=== PATIENT | male | born 1950 | race Caucasian/White ===

== ENCOUNTER → 2017-01-28 | Outpatient (CLI) | payer OTHER ==
[2016-05-19 11:07] VITALS: BP 123/60
--- NOTE | 2017-01-28 09:45 | RAD ---
Examination: X-rays of the right knee. Clinical history: Acute medial meniscus tear, right knee pain. Technique: Four views of the right knee were obtained. Comparison: None available. Findings: No acute fracture, dislocation, or destructive bony lesion is noted. Small osteophytes are noted in the medial compartment of the knee, with tiny osteophytes also seen i n the patellofemoral compartment of the knee, consistent with mild osteoarthritic changes. No soft tissue abnormality is noted. Impression: 1. Mild osteoarthritic changes, as described above. Reported By:
== END ==
LOC: RAD 08:55
PROVIDERS: ATTEND Specialist
DX: S83.241D Other tear of medial meniscus, current injury, right knee, subsequent encounter (principal); X58.XXXD Exposure to other specified factors, subsequent encounter
CPT/HCPCS: 73564

== ENCOUNTER → 2017-04-15 | Outpatient (CLI) | payer OTHER ==
[2016-05-19 11:07] VITALS: BP 123/60
--- NOTE | 2017-04-15 15:24 | MRI ---
MRI right knee Indication: Right knee pain. Technique: Multiplanar MRI images of the right knee was performed without gadolinium. Findings: The quadriceps and patella tendons are normal. There is stranding seen within Hoffa's fat in the region of the ligamentum mucosum. There is a tear of the body, posterior horn of the medial m eniscus with meniscal fragment flipped into the intercondylar notch adjacent to the PCL. The lateral meniscus is normal without tear.. The ACL demonstrate increased signal within the posterior lateral band. The anterior medial band appears intact but wavy. The PCL is normal in appearance. The superf icial MCL is intact. The conjoined tendon and FCL are normal in appearance. There is mild degenerati ve changes involving the proximal tibiofibular joint with fibular subchondral cyst-like changes. The popliteus is intact. There is fluid signal seen within both heads of the gastrocnemius. Small popli teal cyst and small joint effusion are present. No cartilaginous defect is seen however there is adv anced degenerative arthrosis of the medial femorotibial compartment. The lateral femorotibial and pa tellofermoralcompartment show mild degenerative. Conclusion: 1. Complex tear of the body and posterior horn of the medial meniscus with lateral flipp ed fragment into the trochlear notch. 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 2. Sprain of the ACL likely involving the posterior lateral fibers. 3. Curvilinear fluid seen within Hoffa's fat suggest ligamentum mucosum injury. Reported By:
== END | disposition home or self-care (01) ==
LOC: RAD 14:24
PROVIDERS: ATTEND Internal Medicine
DX: M25.561 Pain in right knee (principal); S83.231A Complex tear of medial meniscus, current injury, right knee, initial encounter; S83.8X1A Sprain of other specified parts of right knee, initial encounter; X58.XXXA Exposure to other specified factors, initial encounter
CPT/HCPCS: 73721

== ENCOUNTER → 2017-12-06 | Outpatient (CLI) | payer OTHER ==
[2016-05-19 11:07] VITALS: BP 123/60
--- NOTE | 2017-12-06 14:04 | CT ---
HISTORY: Left flank pain and dysuria Study: CT abdomen and pelvis without contrast Comparison: None Technique: Multiple axial images of the abdomen and pelvis were obtained from the lung bases to the pubic symphy sis without the administration of IV contrast. Dose reduction techniques including automated exposur e control (AEC) and adjustment of mA and kV were utilized. Findings: The visualized portions of the lung bases are unremarkable. An approximate 1.0 cm low-attenuation le maritza within the liver demonstrates Hounsfield units consistent with a cyst. The spleen, pancreas, and adrenals are grossly unremarkable in appearance given the limitations of this noncontrast exam. An a pproximate 5 mm nonobstructing calculus is seen within the right kidney. Mild to moderate left-sided hydronephrosis and hydroureter are demonstrated. An approximate 4 mm stone is seen within the distal left ureter at the level of the ureterovesical junction. Left-sided perinephric and periureteral stra nding are demonstrated. Evaluation of the stomach, small bowel, and colon is limited without oral con trast. The urinary bladder is not well distended which limits evaluation. Postoperative changes of th e prostate are demonstrated. Degenerative changes are seen throughout the visualized spine. IMPRESSION: 4 mm stone at the level of the left ureterovesical junction resulting in mild to moderate left-sided hydronephrosis and hydroureter. Nonobstructing right renal calculus. Other findings as noted above. Reported By:
== END | disposition home or self-care (01) | DRG 392 ==
LOC: RAD 12:45
PROVIDERS: ATTEND Internal Medicine
DX: R10.32 Left lower quadrant pain (principal); N13.39 Other hydronephrosis; N13.4 Hydroureter; N20.0 Calculus of kidney
CPT/HCPCS: 74176

== ENCOUNTER 2018-09-21 21:32 | Inpatient (IN) ==
[2018-09-21 21:47] VITALS: BMI 30.2
[2018-09-21] MEDS ORDERED: NS 1000 ML 1,000 ML ONE (21:49)
[2018-09-21] MEDS ORDERED: NS 1000 ML 1,000 ML IV ONE (21:55)
[2018-09-21] MEDS ORDERED: TORADOL 30 MG VIAL IVP ONE (21:56)
[2018-09-21] MEDS ORDERED: TORADOL 30 MG VIAL ONE (21:58)
--- NOTE | 2018-09-21 21:59 | DR.ABDMALE ---
HPI Time seen Time Seen by Provider: 09/21/18 21:55 PCP Primary Care Physician: MECCA Hart Chief Complaint Doctors Comments: Patient presents with right flank pain. He reports a history of nephrolithiasis one year ago. Pain is sharp 10/10 in elena racter. Chief Complaint:: RIGHT FLANK PAIN, HX OF KIDNEY STONES Mode of arrival Mode of Arrival: Ambulatory Timing Onset of Chief Complaint: 09/21/18 PMH PMH Past Medical History: Yes Past Medical History: Dyslipidemia and Hypertension Past Medical History Comment: HX OF PROSTATE CANCER Past Surgical History: Yes Surgical History: Ortho Surgery Past Surgical History Comment: TOTAL RIGHT KNEE, AND LEFT ROTATOR CUFF Family History History of Family Medical Conditions: No Social History Does patient currently use any type of tobacco product: No Have you used tobacco products in the last 12 months: No Type of Tobacco Use: None Does any household member use tobacco: No Alcohol Use: None Do you use any recreational Drugs:: No Lives With: Spouse Lives Where: Home infectious screening Have you traveled outside the country in the last 6 months?: No Isolation: Standard PE Vital Signs Vital Signs: Temp Pulse Pulse Pulse Resp BP BP 09/22/18 03:46 97.9 F 65 20 133/65 09/21/18 23:25 98.5 F 79 20 170/77 09/21/18 22:59 99.1 F 78 20 148/70 09/21/18 21:35 98.4 F 64 18 170/77 05/19/16 10:50 123/60 Pulse Ox 09/22/18 03:46 96 09/21/18 23:25 95 09/21/18 22:59 96 09/21/18 21:35 97 05/19/16 10:50 General Limitations: No Limitations General Appearance: Alert and Anxious Head Head Exam: Normal Inspection, Atraumatic and Normocephalic Eyes Eye exam: Normal Appearance, PERRL and EOMI ENT ENT Exam: Normal Exam, Normal Oropharynx and Normal External Ear Exam Neck Neck Exam: Normal Inspection and Full ROM Chest Chest Inspection: Normal Inspection and Symmetric Chest Wall Rise Respiratory Respiratory Exam: Normal Lung Sounds Bilat Respiratory Exam: Bilateral: Clear to Auscultation Cardiovascular Cardiovascular Exam: Regular Rate and Normal Rhythm Abdominal Exam Abdominal Exam: Normal Inspection, Normal Bowel Sounds, Soft and Rebound Rectal Rectal Exam: Deferred Back Back Exam: (R) CVA Tenderness Extremeties Extremities Exam: Normal Inspection and Full ROM Exam: Male: Deferred Neurologic Neurological Exam: Alert, Oriented X3 and CN II-XII Intact Psychiatric Psychiatric Exam: Normal Affect and Normal Mood Skin Skin Exam: Warm, Dry and Intact COURSE Treatment Treatment: Toradol, morphine Reevaluation 1st: Improved Consultation Called: 21:45 Consultation Comments: Dr. Seth agreed to admit patient for pain control due left hydroureteronephrosis of a 6mm stone in the distal right ureter. ROR Labs Reviewed Laboratory Results Reviewed?: Yes Result Diagrams: 09/22/18 05:05 09/22/18 05:05 Laboratory: WBC 7.2 X10^3/uL (3.6-10.0) 09/22/18 05:05 RBC 3.98 X10^6/uL (4.7-6.0) L 09/22/18 05:05 Hgb 13.1 g/dL (13.5-18.0) L 09/22/18 05:05 Hct 37.6 % (42.0-54.0) L 09/22/18 05:05 MCV 94.4 fL (80.0-100.0) 09/22/18 05:05 MCH 32.9 pg (27.0-34.0) 09/22/18 05:05 MCHC 34.8 g/dL (33.0-35.0) 09/22/18 05:05 RDW 12.9 % (11.6-16.5) 09/22/18 05:05 Plt Count 200 X10^3/uL (150.0-450.0) 09/22/18 05:05 MPV 8.1 fL (7.4-11.0) 09/22/18 05:05 Neut % (Auto) 59.2 % (42.0-75.0) 09/22/18 05:05 Lymph % (Auto) 30.6 % (21.0-51.0) 09/22/18 05:05 [place] % (Auto) 8.4 % (0.0-13.0) 09/22/18 05:05 Eos % (Auto) 0.9 % (0.9-2.9) 09/22/18 05:05 Baso % (Auto) 0.9 % (0.2-1.0) 09/22/18 05:05 Neut # (Auto) 4.2 x10^3/uL (2.2-4.8) 09/22/18 05:05 Lymph # (Auto) 2.2 X10^3/uL (1.3-2.9) 09/22/18 05:05 [place] # (Auto) 0.6 x10^3/uL (0.3-0.8) 09/22/18 05:05 Eos # (Auto) 0.1 x10^3/uL (0.0-0.2) 09/22/18 05:05 Baso # (Auto) 0.1 X10^3/uL (0.0-0.1) 09/22/18 05:05 Absolute Nucleated RBC 0.1 /100WBC 09/22/18 05:05 Sodium 142 mmol/L (136-145) 09/22/18 05:05 Corrected Sodium TNP 09/22/18 05:05 Potassium 4.0 mmol/L (3.5-5.1) 09/22/18 05:05 Chloride 108 mmol/L (98-107) H 09/22/18 05:05 Carbon Dioxide 24.5 mmol/L (21-32) 09/22/18 05:05 BUN 12 mg/dL (7-18) 09/22/18 05:05 Creatinine 0.97 mg/dL (0.70-1.30) 09/22/18 05:05 Est GFR (MDRD) Af Amer > 60 (>60) 09/22/18 05:05 Est GFR (MDRD) Non-Af > 60 (>60) 09/22/18 05:05 Glucose 94 mg/dL (65-99) 09/22/18 05:05 Calcium 8.1 mg/dL (8.5-10.1) L 09/22/18 05:05 Corrected Calcium 8.7 mg/dL (8.5-10.1) 09/22/18 05:05 Total Bilirubin 0.60 mg/dL (0.2-1.0) 09/22/18 05:05 AST 19 Units/L (15-37) 09/22/18 05:05 ALT 27 Units/L (12-78) 09/22/18 05:05 Alkaline Phosphatase 84 Units/L (46-116) 09/22/18 05:05 Total Protein 5.7 g/dL (6.4-8.2) L 09/22/18 05:05 Albumin 3.2 g/dL (3.4-5.0) L 09/22/18 05:05 Globulin 2.5 g/dL (2.5-4.5) 09/22/18 05:05 Albumin/Globulin Ratio 1.3 Ratio (1.1-2.1) 09/22/18 05:05 Specimen Type Clean catch urine 09/21/18 22:00 Urine Color Yellow (YELLOW) 09/21/18 22:00 Urine Appearance Clear (CLEAR) 09/21/18 22:00 Urine pH 6.5 (5.0 - 8.0) 09/21/18 22:00 Ur Specific [place] 1.020 (1.000-1.030) 09/21/18 22:00 Urine Protein 1+ (NEGATIVE) 09/21/18 22:00 Urine Glucose (UA) Negative (NEGATIVE) 09/21/18 22:00 Urine Ketones Negative (NEGATIVE) 09/21/18 22:00 Urine Occult Blood 3+ (NEGATIVE) 09/21/18 22:00 Urine Nitrite Negative (NEGATIVE) 09/21/18 22:00 Urine Bilirubin Negative (NEGATIVE) 09/21/18 22:00 Urine Urobilinogen Normal (NORMAL) 09/21/18 22:00 Ur Leukocyte Esterase Negative (NEGATIVE) 09/21/18 22:00 Urine RBC 5-10 /HPF (NONE SEEN) 09/21/18 22:00 Urine WBC None seen /HPF (NONE SEEN) 09/21/18 22:00 Ur Squamous Epith Cells Negative /HPF (NEGATIVE) 09/21/18 22:00 Amorphous Sediment Trace /HPF (NEGATIVE) 09/21/18 22:00 Urine Bacteria Negative /HPF (NEGATIVE) 09/21/18 22:00 Urine Mucus Few /HPF (NEGATIVE) 09/21/18 22:00 Ur Culture Indicated? No/not indicated 09/21/18 22:00 Other Results Comments: CT abd/pel:...The visualized lung bases are clear. The liver, speen,pancreas, and adrenal glands are unremarkable in their unenhanced CT appearance. There is suggestion of sludge or stones in the gallbladder. There is right sided hydroureteronephrosis due to a 6mm stone distal right ureter. There are additional punctate nonobstructing bilateral renal calculi. Left ureter is normal. No free intraperitoneal air. No evidence of intestinal obstruction or inflammation. Appendix is not visualized. No free fluid is seen. The soft tissues and osseous structures are unremarkable. Limited evaluation of vascular structures due to lack of contrast. No pathologically enlarged lymph nodes are identified. Normal urinary bladder. There are partially vi sualized brachytherapy seeds in prostate. Impression: Right-sided hydroureteronephrosis due to a 6mm stone in the distal right ureter. XRAY XRAY Interpreted by: Radiologist Diagnosis Discharge Problem: Intractable pain, Nephrolithiasis ADDITIONAL NOTES Additional Notes Additional Notes: Patient admitted for pain management
[2018-09-21 22:09] LABS: BILIRUBIN,URINE NEGATIVE (NEGATIVE); BLOOD/HEMOGLOBIN,URINE 3+ (NEGATIVE); GLUCOSE, URINE NEGATIVE (NEGATIVE); KETONES,URINE NEGATIVE (NEGATIVE); LEUKOCYTE ESTERASE ,URINE NEGATIVE (NEGATIVE); NITRITES,URINE NEGATIVE (NEGATIVE); PH,URINE 6.5 (5.0 - 8.0); PROTEIN,URINE 1+ (NEGATIVE); UROBILINOGEN,URINE NORMAL (NORMAL)
[2018-09-21] MEDS ORDERED: MORPHINE SULFATE INJ 4 MG IVP ONE (22:14)
[2018-09-21] MEDS ORDERED: MORPHINE SULFATE INJ 4 MG ONE (22:15)
[2018-09-21 22:17] LABS: APPEARANCE,URINE CLEAR (CLEAR); BACTERIA,URINE NEGATIVE /HPF (NEGATIVE); COLOR,URINE YELLOW (YELLOW); MUCUS,URINE FEW /HPF (NEGATIVE); SQUAMOUS EPITHELIAL CELL,UR NEGATIVE /HPF (NEGATIVE)
[2018-09-21 22:18] LABS: AMORPHOUS SEDIMENT,UR TRACE /HPF (NEGATIVE)
--- NOTE | 2018-09-21 22:28 | CT ---
HISTORY: Left flank pain, sudden onset with dysuria Study: CT abdomen and pelvis without contrast Comparison: 12/06/2017 Technique: Multiple axial images of the abdomen and pelvis were obtained without IV contrast. Dose reduction techniques including Automated Exposure Control (AEC) and adjustment of mA and kV were utilized. Findings: Please note evaluation is limited without use of IV contrast. The visualized lung bases are clear. The liver, spleen, pancreas, and adrenal glands are unremarkable in their unenhanced CT appearance. There is suggestion of sludge or stones in the gallbladder. There is right-sided hydroureteronephrosis due to a 6 mm stone distal right ureter. There are additional punctate nonobstructing bilateral renal calculi. Left ureter is normal. No free intraperitoneal air. No evidence of intestinal obstruction or inflammation. Appendix is not visualized. No free fluid is seen. The soft tissues and osseous structures are unremarkable. Limited evaluation of vascular structures due to lack of contrast. No pathologically enlarged lymph nodes are identified. Normal urinary bladder. There are partially visualized brachytherapy seeds in prostate. IMPRESSION: 1. Right-sided hydroureteronephrosis due to a 6 mm stone in the distal right ureter. Reported By:
[2018-09-21] MEDS ORDERED: MORPHINE SULFATE PCA 30 MG IVP PRN (22:57)
[2018-09-21] MEDS: NS 1000 ML 1,000 ML IV SCH (23:06)
[2018-09-21] MEDS ORDERED: MORPHINE SULFATE PCA 30 MG ONE (23:47)
[2018-09-22] MEDS: MORPHINE SULFATE PCA 30 MG IVP PRN (00:04)
[2018-09-22 05:21] LABS: BASOPHILS # (AUTO) 0.1 X10^3/uL (0.0-0.1); BASOPHILS % (AUTO) 0.9 % (0.2-1.0); EOSINOPHILS # (AUTO) 0.1 x10^3/uL (0.0-0.2); EOSINOPHILS % (AUTO) 0.9 % (0.9-2.9); HEMATOCRIT 37.6 % (42.0-54.0); HEMOGLOBIN 13.1 g/dL (13.5-18.0); LYMPHOCYTES # (AUTO) 2.2 X10^3/uL (1.3-2.9); LYMPHOCYTES % (AUTO) 30.6 % (21.0-51.0); MEAN CORPUSCULAR HEMOGLOBIN 32.9 pg (27.0-34.0); MEAN CORPUSCULAR HGB CONC 34.8 g/dL (33.0-35.0); MEAN CORPUSCULAR VOLUME 94.4 fL (80.0-100.0); MEAN PLATELET VOLUME 8.1 fL (7.4-11.0); MONOCYTES # (AUTO) 0.6 x10^3/uL (0.3-0.8); MONOCYTES % (AUTO) 8.4 % (0.0-13.0); NEUTROPHILS # (AUTO) 4.2 x10^3/uL (2.2-4.8); NEUTROPHILS % (AUTO) 59.2 % (42.0-75.0); PLATELET COUNT 200 X10^3/uL (150.0-450.0); RED BLOOD COUNT 3.98 X10^6/uL (4.7-6.0); RED CELL DISTRIBUTION WIDTH 12.9 % (11.6-16.5); WHITE BLOOD COUNT 7.2 X10^3/uL (3.6-10.0)
[2018-09-22 05:26] LABS: ALANINE AMINOTRANSFERASE 27 Units/L (12-78); ALBUMIN 3.2 g/dL (3.4-5.0); ALKALINE PHOSPHATASE 84 Units/L (46-116); ASPARTATE AMINO TRANSFERASE 19 Units/L (15-37); BLOOD UREA NITROGEN 12 mg/dL (7-18); CALCIUM 8.1 mg/dL (8.5-10.1); CARBON DIOXIDE 24.5 mmol/L (21-32); CHLORIDE 108 mmol/L (98-107); COR CA(FOR HYPOALB) 8.7 mg/dL (8.5-10.1); CREATININE 0.97 mg/dL (0.70-1.30); SODIUM 142 mmol/L (136-145); TOTAL PROTEIN 5.7 g/dL (6.4-8.2); eGFR NON BLACK RACES > 60 (>60)
[2018-09-22] MEDS: NS 1000 ML 1,000 ML IV SCH ×4 (06:02→20:32)
[2018-09-22] MEDS: LIPITOR TAB 10 MG PO SCH (08:10)
[2018-09-22] MEDS ORDERED: NORVASC TAB 5 MG PO SCH (09:00)
[2018-09-22] MEDS ORDERED: CARDURA PO SCH ×3 (09:00→21:00)
[2018-09-22] MEDS ORDERED: TORADOL 30 MG VIAL IVP PRN (10:02)
[2018-09-22] MEDS ORDERED: NS 1000 ML 1,000 ML IV ONE (10:11)
[2018-09-22] MEDS: NORVASC TAB 10 MG PO SCH (10:37)
[2018-09-22] MEDS ORDERED: LASIX IVP SCH (11:00)
[2018-09-22] MEDS ORDERED: NORVASC TAB 5 MG PO NR (11:00)
--- NOTE | 2018-09-22 19:44 | DR.H&P ---
H&P - History & Physical for Day of: H&P Date: 09/21/18 - Chief Complaint Chief Complaint: RIGHT FLANK PAIN - History of Present Illness History of Present Illness: IS A 67 YEAR OLD PATIENT OF OURS WHO PRESENTED TO THE EMERGENCY ROOM WITH COMPLAINTS OF RIGHT FLANK PAIN THAT STARTED TODAY. HE REPORTS A HISTORY OF NEPHROLITHIASIS ONE YEAR AGO. HE REPORTS THAT PAIN IS A 10/10. ON ARRIVAL, VITALS WERE 98.4-64-18-97%-170/77. LABS WERE O BTAINED. A URINALYSIS WAS OBTAINED AND REVEALED: WBC: NONE SEEN, RBC 5-10, BACTERIA NEGATIVE, LEUKOCYTES NEGATIVE, OCCULT BLOOD 3+. AN ABDOMEN/PELVIS CT WAS OBTAINED AND REVEALED: Right-sided hydroureteronephrosis due to a 6 mm stone in the distal right ureter. HE WAS GIVEN A NORMAL SALINE BOLUS, TORADOL 30MG IV X 1, AND MORPHINE 4MG IV X 1. HE WAS ADMITTED TO THE HOSPITAL AND STARTED ON A MORPHINE CONVENIENCE STORE CLERK FOR PAIN CONTROL AND NORMAL SALINE AT 125ML/HR. WE PLAN TO FOLLOW UP WITH AM LABS AND CONTINUE TO MONITOR. - Past Medical History Past Medical History: Hypertension, Dyslipidemia - Past Surgical History Surgical History: Ortho Surgery - Family History Family Medical History: [place] - Social History Does patient currently use any type of tobacco product: No Have you used tobacco products in the last 12 months: No Type of Tobacco Use: None Does any household member use tobacco: No Alcohol Use: None Drug Use: None - Medications Home Medications: No Known Drug Allergies Allergy (Verified 09/21/18 21:48) CONTINUE taking the following medications Ca-D3-mag [id number] [Calcium 600-D3 Plus] 1 tab PO DAILY 09/22/18 [History] ascorbic acid (vitamin C) [Vitamin C With Cristin Hips] 500 mg PO DAILY 09/22/18 [History] atorvastatin 20 mg PO QDAY 09/22/18 [History] cyanocobalamin (vitamin B-12) [Vitamin B-12] 1,000 mcg PO DAILY 09/22/18 [History] doxazosin [Cardura] 4 mg PO HS 09/22/18 [History] [id number]-lutein [Complete Multi 50+] 1 tab PO DAILY 09/22/18 [History] - Review of Systems Constitutional: No Symptoms Reported Eyes: No Symptoms Reported ENT: No Symptoms Reported Respiratory: No Symptoms Reported Cardiovascular: No Symptoms Reported Gastrointestinal: No Symptoms Reported Genitourinary: Hematuria Musculoskeletal: See HPI, Other (RIGHT FLANK PAIN ) Skin: No Symptoms Reported Neurological: No Symptoms Reported - Physical Exam Vital Signs: Temperature 97.6 F Pulse Rate [Left Brachial] 66 Pulse Rate [Apical] 78 Pulse Rate 64 Respiratory Rate 18 Blood Pressure [Left Arm] 146/73 Blood Pressure 170/77 O2 Sat by Pulse Oximetry 98 Oriented: Normal Eyes: Normal Ear: Normal Nose: Normal Throat: Normal Respiratory: Clear Throughout Cardiovascular: Normal : Hematuria Auscultation: Bowel Sounds: Normal Palpation: Normal Tenderness: Normal Skin: Normal Musculoskeletal: Right (RIGHT FLANK PAIN ) Psychiatric: Normal Mood Description: Calm Affect: Normal Speech Pattern: Clear - Assessment/Plan (1) Nephrolithiasis Status: Acute Plan: NORMAL SALINE AT 125ML/HR, MORPHINE CONVENIENCE STORE CLERK, DOXAZOSIN 2MG PO HS (2) Intractable pain Status: Acute Plan: MORPHINE CONVENIENCE STORE CLERK - Allergies Allergies/Adverse Reactions: Allergies Allergy/AdvReac Type Severity Reaction Status Date / Time No Known Drug Allergies Allergy Verified 09/21/18 21:48
--- NOTE | 2018-09-22 19:50 | PCM.PROG ---
Progress Note - Progress Note for Day of Date of Exam: 09/22/18 - Subjective Subjective: WAS ADMITTED FOR A 6MM STONE IN THE RIGHT DISTAL URETER. HE HAS HAD INTRACTABLE PAIN. PAIN HAS BEEN BETTER CONTROLLED WITH MORPHINE MECHANIC AND WELDER. TODAY, HE IS ALERT AND ORIENTED, LYING IN BED ON MORNING ROUNDS. HIS VITALS THIS MORNING ARE 98.1-62-18-96%-126/69. LABS WERE OBTAINED. ABNORMAL LAB VALUES INCLUDE THE FOLLOWING: RBC 3.98, HGB 13.1, HCT 37.6, CHLORIDE 108, CALCIUM 8.1, TOTAL PROTEIN 5.7, ALBUMIN 3.2. TODAY, WE WILL INCREASE IV FLUIDS TO 200ML/HR, INCREASE DOXAZOSIN TO 8MG PO HS, INCREASE NORVASC TO 10MG PO HS, START TORADOL 30MG IV Q6H PRN, AND BOLUS HIM WITH 1 LITER NORMAL SALINE. OTHERWISE, WE WILL CONTINUE WITH CURRENT PLAN OF CARE. WE PLAN TO FOLLOW UP WITH AM LABS AND CO NTINUE TO MONITOR. - Past Medical Family Social History Past Med/Fam/Surg Hx: No changes since H&P Allergies: Allergies No Known Drug Allergies Allergy (Verified 09/21/18 21:48) - Review of Systems ROS: No change since H&P - Vital Signs and I&O's Vital Signs: Temperature 98.1 F Pulse Rate [Left Brachial] 69 Pulse Rate [Apical] 78 Pulse Rate 64 Respiratory Rate 20 Blood Pressure [Left Arm] 159/74 Blood Pressure 170/77 O2 Sat by Pulse Oximetry 95 Intake and Output: Intake & Output 09/20/18 09/21/18 09/22/18 09/23/18 11:59 11:59 11:59 11:59 Intake Total 1100 / 1100 3282 / 3282 Output Total 975 / 975 1600 / 1600 Balance 125 / 125 1682 / 1682 - Physical Exam Oriented: Normal Eyes: Normal Ear: Normal Nose: Normal Throat: Normal Respiratory: Normal Cardiovascular: Normal : Hematuria Auscultation: Bowel Sounds: Normal Palpation: Normal Tenderness: Normal Skin: Normal Musculoskeletal: Right (RIGHT FLANK PAIN ) Psychiatric: Normal Mood Description: Calm Affect: Normal Speech Pattern: Clear - Laboratory and Diagnostics Result Diagrams: 09/22/18 05:05 09/22/18 05:05 Labs: Laboratory WBC 7.2 X10^3/uL (3.6-10.0) 09/22/18 05:05 RBC 3.98 X10^6/uL (4.7-6.0) L 09/22/18 05:05 Hgb 13.1 g/dL (13.5-18.0) L 09/22/18 05:05 Hct 37.6 % (42.0-54.0) L 09/22/18 05:05 MCV 94.4 fL (80.0-100.0) 09/22/18 05:05 MCH 32.9 pg (27.0-34.0) 09/22/18 05:05 MCHC 34.8 g/dL (33.0-35.0) 09/22/18 05:05 RDW 12.9 % (11.6-16.5) 09/22/18 05:05 Plt Count 200 X10^3/uL (150.0-450.0) 09/22/18 05:05 MPV 8.1 fL (7.4-11.0) 09/22/18 05:05 Neut % (Auto) 59.2 % (42.0-75.0) 09/22/18 05:05 Lymph % (Auto) 30.6 % (21.0-51.0) 09/22/18 05:05 [place] % (Auto) 8.4 % (0.0-13.0) 09/22/18 05:05 Eos % (Auto) 0.9 % (0.9-2.9) 09/22/18 05:05 Baso % (Auto) 0.9 % (0.2-1.0) 09/22/18 05:05 Neut # (Auto) 4.2 x10^3/uL (2.2-4.8) 09/22/18 05:05 Lymph # (Auto) 2.2 X10^3/uL (1.3-2.9) 09/22/18 05:05 [place] # (Auto) 0.6 x10^3/uL (0.3-0.8) 09/22/18 05:05 Eos # (Auto) 0.1 x10^3/uL (0.0-0.2) 09/22/18 05:05 Baso # (Auto) 0.1 X10^3/uL (0.0-0.1) 09/22/18 05:05 Absolute Nucleated RBC 0.1 /100WBC 09/22/18 05:05 Sodium 142 mmol/L (136-145) 09/22/18 05:05 Corrected Sodium TNP 09/22/18 05:05 Potassium 4.0 mmol/L (3.5-5.1) 09/22/18 05:05 Chloride 108 mmol/L (98-107) H 09/22/18 05:05 Carbon Dioxide 24.5 mmol/L (21-32) 09/22/18 05:05 BUN 12 mg/dL (7-18) 09/22/18 05:05 Creatinine 0.97 mg/dL (0.70-1.30) 09/22/18 05:05 Est GFR (MDRD) Af Amer > 60 (>60) 09/22/18 05:05 Est GFR (MDRD) Non-Af > 60 (>60) 09/22/18 05:05 Glucose 94 mg/dL (65-99) 09/22/18 05:05 Calcium 8.1 mg/dL (8.5-10.1) L 09/22/18 05:05 Corrected Calcium 8.7 mg/dL (8.5-10.1) 09/22/18 05:05 Total Bilirubin 0.60 mg/dL (0.2-1.0) 09/22/18 05:05 AST 19 Units/L (15-37) 09/22/18 05:05 ALT 27 Units/L (12-78) 09/22/18 05:05 Alkaline Phosphatase 84 Units/L (46-116) 09/22/18 05:05 Total Protein 5.7 g/dL (6.4-8.2) L 09/22/18 05:05 Albumin 3.2 g/dL (3.4-5.0) L 09/22/18 05:05 Globulin 2.5 g/dL (2.5-4.5) 09/22/18 05:05 Albumin/Globulin Ratio 1.3 Ratio (1.1-2.1) 09/22/18 05:05 Specimen Type Clean catch urine 09/21/18 22:00 Urine Color Yellow (YELLOW) 09/21/18 22:00 Urine Appearance Clear (CLEAR) 09/21/18 22:00 Urine pH 6.5 (5.0 - 8.0) 09/21/18 22:00 Ur Specific [place] 1.020 (1.000-1.030) 09/21/18 22:00 Urine Protein 1+ (NEGATIVE) 09/21/18 22:00 Urine Glucose (UA) Negative (NEGATIVE) 09/21/18 22:00 Urine Ketones Negative (NEGATIVE) 09/21/18 22:00 Urine Occult Blood 3+ (NEGATIVE) 09/21/18 22:00 Urine Nitrite Negative (NEGATIVE) 09/21/18 22:00 Urine Bilirubin Negative (NEGATIVE) 09/21/18 22:00 Urine Urobilinogen Normal (NORMAL) 09/21/18 22:00 Ur Leukocyte Esterase Negative (NEGATIVE) 09/21/18 22:00 Urine RBC 5-10 /HPF (NONE SEEN) 09/21/18 22:00 Urine WBC None seen /HPF (NONE SEEN) 09/21/18 22:00 Ur Squamous Epith Cells Negative /HPF (NEGATIVE) 09/21/18 22:00 Amorphous Sediment Trace /HPF (NEGATIVE) 09/21/18 22:00 Urine Bacteria Negative /HPF (NEGATIVE) 09/21/18 22:00 Urine Mucus Few /HPF (NEGATIVE) 09/21/18 22:00 Ur Culture Indicated? No/not indicated 09/21/18 22:00 - Plan (1) Nephrolithiasis Status: Acute Plan: NORMAL SALINE AT 200ML/HR, MORPHINE MECHANIC AND WELDER, DOXAZOSIN 8MG PO HS, NORVASC 10MG PO DAILY, TORADOL 30MG IV Q6H PRN, CONTINUE TO MONITOR. (2) Intractable pain Status: Acute Plan: MORPHINE MECHANIC AND WELDER
[2018-09-23] MEDS: NS 1000 ML 1,000 ML IV SCH ×2 (00:23→06:30)
[2018-09-23] MEDS: MORPHINE SULFATE PCA 30 MG IVP PRN (00:45)
[2018-09-23 05:19] LABS: BASOPHILS # (AUTO) 0.1 X10^3/uL (0.0-0.1); BASOPHILS % (AUTO) 0.8 % (0.2-1.0); EOSINOPHILS # (AUTO) 0.3 x10^3/uL (0.0-0.2); EOSINOPHILS % (AUTO) 4.5 % (0.9-2.9); HEMATOCRIT 37.8 % (42.0-54.0); HEMOGLOBIN 13.2 g/dL (13.5-18.0); LYMPHOCYTES # (AUTO) 2.3 X10^3/uL (1.3-2.9); LYMPHOCYTES % (AUTO) 33.9 % (21.0-51.0); MEAN CORPUSCULAR HEMOGLOBIN 33.4 pg (27.0-34.0); MEAN CORPUSCULAR HGB CONC 35.1 g/dL (33.0-35.0); MEAN CORPUSCULAR VOLUME 95.1 fL (80.0-100.0); MEAN PLATELET VOLUME 8.3 fL (7.4-11.0); MONOCYTES # (AUTO) 0.6 x10^3/uL (0.3-0.8); MONOCYTES % (AUTO) 8.7 % (0.0-13.0); NEUTROPHILS # (AUTO) 3.5 x10^3/uL (2.2-4.8); NEUTROPHILS % (AUTO) 52.1 % (42.0-75.0); PLATELET COUNT 190 X10^3/uL (150.0-450.0); RED BLOOD COUNT 3.97 X10^6/uL (4.7-6.0); WHITE BLOOD COUNT 6.8 X10^3/uL (3.6-10.0)
[2018-09-23 05:30] LABS: ALANINE AMINOTRANSFERASE 27 Units/L (12-78); ALBUMIN 3.1 g/dL (3.4-5.0); ALKALINE PHOSPHATASE 82 Units/L (46-116); ASPARTATE AMINO TRANSFERASE 21 Units/L (15-37); BLOOD UREA NITROGEN 10 mg/dL (7-18); CALCIUM 8.3 mg/dL (8.5-10.1); CARBON DIOXIDE 25.9 mmol/L (21-32); CHLORIDE 109 mmol/L (98-107); CREATININE 0.89 mg/dL (0.70-1.30); SODIUM 144 mmol/L (136-145); TOTAL PROTEIN 5.7 g/dL (6.4-8.2); eGFR NON BLACK RACES > 60 (>60)
[2018-09-23] MEDS: LIPITOR TAB 10 MG PO SCH (08:40)
[2018-09-23] MEDS: NORVASC TAB 10 MG PO SCH (08:40)
[2018-09-23 08:43] VITALS: BP 141/70
== END 2018-09-23 09:20 | disposition home or self-care (01) | DRG 694 ==
LOC: ER 21:34 → MED/SURG 22:48
PROVIDERS: ADMIT Internal Medicine; ATTEND Internal Medicine
DX: R52 Pain, unspecified; Z87.442 Personal history of urinary calculi; Z85.46 Personal history of malignant neoplasm of prostate; N13.39 Other hydronephrosis; E78.2 Mixed hyperlipidemia; I10 Essential (primary) hypertension; N20.0 Calculus of kidney
CPT/HCPCS: 36415; 74176; 80053; 81001; 85025; 94760; 96365; 96367; 96374; 96375; 99284; A4222; J1885; J1940; J2270; J2271; J7030